=== PATIENT | female | born 2000 | race Caucasian/White ===

== ENCOUNTER 2020-11-11 23:28 | Emergency (ER) | payer OTHER ==
[~2020-11-11] VITALS: Ht 157.5 cm; Wt 56.0 kg
[2020-11-11 23:32] VITALS: BP 118/71
[2020-11-12] MEDS ORDERED: IBUP-2029 PO (02:43)
[2020-11-12] MEDS ORDERED: AMOX-494 PO (02:43)
== END 2020-11-12 03:09 | disposition home or self-care (01) ==
LOC: ER 23:28
DX: J02.9 Acute pharyngitis, unspecified (principal)
CPT/HCPCS: 99283